=== PATIENT | male | born 1990 | race Caucasian/White ===

== ENCOUNTER 2023-03-09 17:58 | Inpatient (IN) | payer MEDICAID ==
[~2023-03-09] VITALS: Ht 185.4 cm; Wt 77.0 kg
[2023-03-09 18:35] LABS: ALANINE AMINOTRANSFERASE 17 U/L (12-78); ALBUMIN 4.4 G/DL (3.4-5.0); ALBUMIN/GLOBULIN RATIO 1.4 (1.1-1.5); ALKALINE PHOSPHATASE 92 IU/L (46-116); ANION GAP 12 (8-16); ASPARTATE AMINO TRANSFERASE 12 U/L (10-37); BILIRUBIN,TOTAL 0.7 MG/DL (0.1-1.0); BLOOD UREA NITROGEN 14 MG/DL (7-18); BUN/CREATININE RATIO 11.9 (10.0-20.0); CALCIUM 9.5 MG/DL (8.5-10.1); CHLORIDE 104 MMOL/L (99-107); CREATININE 1.18 MG/DL (0.60-1.10); GLUCOSE 129 MG/DL (70-104); LIPASE 72 U/L (73-393); POTASSIUM 3.2 MMOL/L (3.5-5.1); SODIUM 139 MMOL/L (135-145); TOTAL CARBON DIOXIDE 23.2 MMOL/L (24-32); TOTAL PROTEIN 7.5 G/DL (6.4-8.2); eGFR 72 ML/MIN
[2023-03-09 18:36] LABS: MEAN CORPUSCULAR HEMOGLOBIN 31.4 PG (27.0-31.0); WHITE BLOOD COUNT 11.2 X10'3 (4.5-11.0)
[2023-03-09 18:37] LABS: BASOPHILS % (AUTO) 0.2 % (0-1); EOSINOPHILS # (AUTO) 0.2 X10'3 (0-0.9); EOSINOPHILS % (AUTO) 1.7 % (0-6); HEMATOCRIT 43.5 % (42.0-52.0); LYMPHOCYTES # (AUTO) 1.7 X10'3 (1.1-4.8); MEAN CORPUSCULAR HGB CONC 34.4 g/dL (33.0-36.5); MEAN CORPUSCULAR VOLUME 91.4 FL (78-98); MONOCYTES # (AUTO) 1.1 X10'3 (0-0.9); MONOCYTES % (AUTO) 9.6 % (2-12); NEUTROPHILS # (AUTO) 8.2 X10'3 (1.8-7.7); NEUTROPHILS % (AUTO) 73.5 % (42-75); PLATELET COUNT 273 X10'3 (140-440); RED BLOOD COUNT 4.77 X10'6 (4.70-6.10); RED CELL DISTRIBUTION WIDTH 12.7 % (11.5-14.5)
[2023-03-09] MEDS ORDERED: normal saline 1000ML IV soln IVB ONE ×2 (18:45→21:55)
[2023-03-09] MEDS ORDERED: ondansetron/PF 4mg/2ml inj IV ONE (18:45)
[2023-03-09] MEDS: morphine 4 MG/ML inj SYRINge IV PRN ×2 (18:50→20:40)
[2023-03-09] MEDS ORDERED: NO HOME MEDS (20:42)
[2023-03-09] MEDS ORDERED: temazepam 15mg capsule PO PRN (21:00)
[2023-03-09] MEDS ORDERED: piperacillin/tazo 3.375gm/50ml 50 ML IV ONE (21:47)
--- NOTE | 2023-03-09 21:58 | NUR ---
per dr griffith, give zosyn over 30 minuties, not over the 4 hours as ordered.
[2023-03-09] MEDS ORDERED: HYDR-3965 PO (22:03)
[2023-03-09] MEDS ORDERED: METR-159 PO (22:03)
[2023-03-09] MEDS ORDERED: LEVO-65 PO (22:03)
--- NOTE | 2023-03-09 22:25 | NUR ---
US AT BEDSIDE
[2023-03-09 23:48] LABS: CLARITY,URINE CLEAR (Clear); COLOR,URINE YELLOW (Yellow); GLUCOSE, URINE NEGATIVE (Neg); KETONES,URINE 40 mg/dl (Neg); LEUKOCYTE ESTERASE ,URINE NEGATIVE (Neg); NITRITES, URINE NEGATIVE (Neg); OCCULT BLOOD,URINE NEGATIVE (Neg); PH,URINE 6.5 (4.8-8.0); PROTEIN,URINE NEGATIVE (Neg); UROBILINOGEN,URINE 0.2 E.U/dL (0.2-1.0)
[2023-03-09 23:53] LABS: UA COLLECTION TYPE STRAIGHT CATH
[2023-03-10] MEDS ORDERED: HYDROcodone/acetaminophen 5mg/325mg tablet PO PRN
[2023-03-10] MEDS ORDERED: mag hydrox/Alum hydrox/simeth 30ml oral suspension PO PRN
[2023-03-10] MEDS ORDERED: ondansetron 4mg rapidly disintigrating tab PO PRN
[2023-03-10] MEDS ORDERED: normal saline 1000ml 1,000 ML IV SCH
[2023-03-10] MEDS ORDERED: diphenhydrAMINE 25mg capsule PO PRN
[2023-03-10] MEDS ORDERED: bisacodyl 10mg suppository rectal RC PRN
[2023-03-10] MEDS ORDERED: HYDROmorphone inj. 0.5 MG/0.5 ML DISP.SYRIN IV PRN
[2023-03-10] MEDS ORDERED: acetaminophen 650mg rectal suppository RC PRN
[2023-03-10] MEDS ORDERED: acetaminophen 325mg tablet PO PRN ×2
[2023-03-10] MEDS ORDERED: HYDROcodone/acetaminophen 10/325mg tab PO PRN
[2023-03-10] MEDS ORDERED: magnesium hydroxide 30ml (MOM) UD suspension PO PRN
[2023-03-10] MEDS ORDERED: diphenhydrAMINE 50 mg/ml inj IV PRN
[2023-03-10] MEDS ORDERED: magnesium 4gm in 100ml NS 100 ML IV PRN (00:05)
[2023-03-10] MEDS ORDERED: magnesium Cl slow-release 64mg tablet PO PRN (00:05)
[2023-03-10] MEDS ORDERED: potassium Cl 40MEQ/1/2NS 520ml 520 ML IV PRN (00:05)
[2023-03-10] MEDS ORDERED: magnesium 2GM in 50ml NS 50 ML IV PRN (00:05)
[2023-03-10] MEDS ORDERED: potassium Cl 20 mEq SR tablet PO PRN ×2 (00:05)
[2023-03-10] MEDS: morphine 2 MG/ML inj. syringe IV PRN ×3 (00:22→20:57)
[2023-03-10] MEDS: ondansetron/PF 4mg/2ml inj IV PRN (00:22)
[2023-03-10] MEDS: potassium Cl 20mEq in NS 1,000 ML IV SCH ×2 (00:30→13:15)
[2023-03-10 02:25] LABS: APTT 27 SECONDS (22-32); BASOPHILS % (AUTO) 0.2 % (0-1); EOSINOPHILS % (AUTO) 0.3 % (0-6); HEMATOCRIT 40.9 % (42.0-52.0); HEMOGLOBIN 14.1 g/dl (14.0-17.9); LYMPHOCYTES # (AUTO) 0.5 X10'3 (1.1-4.8); LYMPHOCYTES % (AUTO) 3.5 % (21-51); MEAN CORPUSCULAR HGB CONC 34.4 g/dL (33.0-36.5); MEAN CORPUSCULAR VOLUME 90.2 FL (78-98); MEAN PLATELET VOLUME 9.3 FL (7.4-10.4); MONOCYTES # (AUTO) 0.1 X10'3 (0-0.9); NEUTROPHILS # (AUTO) 12.7 X10'3 (1.8-7.7); PLATELET COUNT 208 X10'3 (140-440); RED BLOOD COUNT 4.54 X10'6 (4.70-6.10); RED CELL DISTRIBUTION WIDTH 12.8 % (11.5-14.5); WHITE BLOOD COUNT 13.4 X10'3 (4.5-11.0)
[2023-03-10 02:39] LABS: ALANINE AMINOTRANSFERASE 20 U/L (12-78); ALBUMIN 3.8 G/DL (3.4-5.0); ALBUMIN/GLOBULIN RATIO 1.3 (1.1-1.5); ALKALINE PHOSPHATASE 83 IU/L (46-116); ANION GAP 13 (8-16); ASPARTATE AMINO TRANSFERASE 15 U/L (10-37); BILIRUBIN,TOTAL 0.8 MG/DL (0.1-1.0); BLOOD UREA NITROGEN 13 MG/DL (7-18); BUN/CREATININE RATIO 13.4 (10.0-20.0); CALCIUM 8.6 MG/DL (8.5-10.1); CHLORIDE 106 MMOL/L (99-107); CHOLESTEROL 111 MG/DL (0-200); CREATININE 0.97 MG/DL (0.60-1.10); GLUCOSE 140 MG/DL (70-104); HDL CHOLESTEROL 56 MG/DL (35-60); LDL CHOLESTEROL 42 MG/DL (50-100); MAGNESIUM 1.8 MG/DL (1.5-2.4); PHOSPHORUS 2.9 MG/DL (2.3-4.5); POTASSIUM 3.6 MMOL/L (3.5-5.1); SODIUM 141 MMOL/L (135-145); TOTAL CARBON DIOXIDE 22.1 MMOL/L (24-32); TOTAL PROTEIN 6.7 G/DL (6.4-8.2); TRIGLYCERIDES 32 MG/DL (20-135); eGFR > 90 ML/MIN
[2023-03-10 03:00] VITALS: BP 156/86
[2023-03-10 03:05] LABS: HEMOGLOBIN A1C 5.1 % (4.5-6.2)
[2023-03-10 04:04] LABS: HYPERSEGMENTED NEUTROPHILS 1+; LARGE PLATELETS MODERATE; TOTAL CELLS COUNTED 100
[2023-03-10 04:05] LABS: PLATELET ESTIMATE NORMAL
[2023-03-10] MEDS: piperacillin/tazo 4.5gm/100ml 100 ML IV SCH ×3 (05:47→23:29)
[2023-03-10 06:00] VITALS: BP 145/76
--- NOTE | 2023-03-10 06:31 | NUR ---
Problems reprioritized. Patient report given, questions answered & plan of care reviewed with DIANA Craft.
--- NOTE | 2023-03-10 06:46 | NUR ---
Patient in room ORTHO 4013. I have received report from DEANN ORTIZ and had the opportunity to ask questions and assume patient care.
[2023-03-10] MEDS ORDERED: docusate sod 100mg capsule PO SCH (08:00)
[2023-03-10] MEDS: K and/or MAG REPLACEMENT MC SCH ×2 (08:00→20:00)
[2023-03-10 10:00] VITALS: BP 145/88
--- NOTE | 2023-03-10 10:22 | NUR ---
Page Sent promotional table spacer PAGER ID: [phone] MESSAGE: [phone], [employer] LET ME KNOW THAT PT HAD A HR DROP TO 39 BUT DID NOT SUSTAIN. HE HAS BEEN RUNNING IN THE 40S-50S BUT PT IS SLEEPING. JOSH
--- NOTE | 2023-03-10 12:06 | NUR ---
Malnutrition Consult: Pt admit DX SANJAY, acute cholecystitis, and hemorrhagic colitis hx N/V w/ abdominal pain day of admit per EMR. 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 Pt w/ normal strength, no edema/wounds, pending scaled wt this admit w/ no prior wt hx in EMR, and appears WD/WN per MD note. Current reported wt in EMR appropriate. Pt lacks minimum malnutrition criteria at this time; will monitor for further malnutrition criteria this admit. Addendum: 03/10/23 at [address] Amended: Links added.
[2023-03-10] MEDS: metoclopramide 5 mg/ml inj IV PRN ×2 (12:50→20:47)
[2023-03-10] MEDS ORDERED: morphine 2 MG/ML inj. syringe IV PRN ×2 (13:55)
[2023-03-10] MEDS ORDERED: morphine 4 MG/ML inj SYRINge IV PRN (13:55)
[2023-03-10] MEDS ORDERED: ondansetron/PF 4mg/2ml inj IV PRN (13:55)
[2023-03-10] MEDS ORDERED: hydrALAZINE 20mg/ml inj. IV PRN (13:55)
[2023-03-10] MEDS ORDERED: fentaNYL/PF 50MCG/1 ML 2ML syringe IV PRN ×2 (13:55)
[2023-03-10] MEDS ORDERED: ringers solution, lacted 1,000 ML IV SCH (13:55)
[2023-03-10] MEDS ORDERED: labetalol 20mg/4ml (5mg/ml) syringe IV PRN (13:55)
[2023-03-10 18:00] VITALS: BP 124/73
--- NOTE | 2023-03-10 18:49 | NUR ---
Problems reprioritized. Patient report given, questions answered & plan of care reviewed with gerald monzon.
[2023-03-10 22:00] VITALS: BP 96/60
[2023-03-11] MEDS: potassium Cl 20mEq in NS 1,000 ML IV SCH ×3 (05:10→21:32)
[2023-03-11] MEDS: piperacillin/tazo 4.5gm/100ml 100 ML IV SCH ×3 (05:24→21:32)
[2023-03-11 05:34] LABS: BASOPHILS % (AUTO) 0.3 % (0-1); EOSINOPHILS # (AUTO) 0.2 X10'3 (0-0.9); EOSINOPHILS % (AUTO) 1.5 % (0-6); HEMATOCRIT 40.2 % (42.0-52.0); HEMOGLOBIN 13.9 g/dl (14.0-17.9); LYMPHOCYTES # (AUTO) 2.2 X10'3 (1.1-4.8); LYMPHOCYTES % (AUTO) 21.8 % (21-51); MEAN CORPUSCULAR HEMOGLOBIN 31.3 PG (27.0-31.0); MEAN CORPUSCULAR HGB CONC 34.6 g/dL (33.0-36.5); MEAN CORPUSCULAR VOLUME 90.7 FL (78-98); MEAN PLATELET VOLUME 9.5 FL (7.4-10.4); MONOCYTES # (AUTO) 1.1 X10'3 (0-0.9); MONOCYTES % (AUTO) 11.3 % (2-12); NEUTROPHILS # (AUTO) 6.5 X10'3 (1.8-7.7); NEUTROPHILS % (AUTO) 65.1 % (42-75); PLATELET COUNT 214 X10'3 (140-440); RED BLOOD COUNT 4.43 X10'6 (4.70-6.10); RED CELL DISTRIBUTION WIDTH 12.7 % (11.5-14.5); WHITE BLOOD COUNT 9.9 X10'3 (4.5-11.0)
[2023-03-11 05:44] LABS: ALANINE AMINOTRANSFERASE 23 U/L (12-78); ALBUMIN 3.3 G/DL (3.4-5.0); ALBUMIN/GLOBULIN RATIO 1.2 (1.1-1.5); ALKALINE PHOSPHATASE 69 IU/L (46-116); ANION GAP 9 (8-16); ASPARTATE AMINO TRANSFERASE 15 U/L (10-37); BILIRUBIN,TOTAL 0.6 MG/DL (0.1-1.0); BLOOD UREA NITROGEN 10 MG/DL (7-18); BUN/CREATININE RATIO 9.7 (10.0-20.0); CALCIUM 8.5 MG/DL (8.5-10.1); CHLORIDE 107 MMOL/L (99-107); CREATININE 1.03 MG/DL (0.60-1.10); GLUCOSE 97 MG/DL (70-104); POTASSIUM 3.7 MMOL/L (3.5-5.1); SODIUM 140 MMOL/L (135-145); TOTAL CARBON DIOXIDE 24.4 MMOL/L (24-32); TOTAL PROTEIN 6.1 G/DL (6.4-8.2); eGFR 85 ML/MIN
[2023-03-11 06:00] VITALS: BP 117/77
--- NOTE | 2023-03-11 06:57 | NUR ---
Patient in room ORTHO 4013. I have received report from gerald monzon and had the opportunity to ask questions and assume patient care.
[2023-03-11] MEDS: K and/or MAG REPLACEMENT MC SCH ×2 (08:00→20:00)
[2023-03-11] MEDS: metoclopramide 5 mg/ml inj IV PRN (08:39)
[2023-03-11] MEDS: morphine 2 MG/ML inj. syringe IV PRN (08:40)
--- NOTE | 2023-03-11 09:07 | NUR ---
Page SenT PAGER ID: [phone] MESSAGE: [phone] ROCHELLE, PT IS HAVING CHEST PAIN SAYS ITS 05/12, I GAVE MORPHINE AND HIS VITALS WERE 95/69 HR 71 98% RA 22 RR. PLEASE CALL ME YANIQUE, POSSIBLE ANXIETY JOSH [id number]
[2023-03-11 10:00] VITALS: BP 146/72
[2023-03-11] MEDS ORDERED: LORazepam 2 mg/ml vial IV PRN (10:55)
[2023-03-11] MEDS: HYDROmorphone 1 mg/ml syringe IV PRN ×3 (11:07→21:34)
[2023-03-11] MEDS: ondansetron/PF 4mg/2ml inj IV PRN ×2 (15:35→21:34)
[2023-03-11 18:00] VITALS: BP 97/67
[2023-03-11 22:00] VITALS: BP 124/72
--- NOTE | 2023-03-12 00:49 | NUR ---
Problems reprioritized. Patient report given, questions answered & plan of care reviewed with CHERYL ORTIZ.
--- NOTE | 2023-03-12 00:51 | NUR ---
Problems reprioritized. Patient report given, questions answered & plan of care reviewed with CHERYL ORTIZ.
[2023-03-12] MEDS: potassium Cl 20mEq in NS 1,000 ML IV SCH (02:20)
[2023-03-12 06:22] LABS: BASOPHILS % (AUTO) 0.3 % (0-1); EOSINOPHILS # (AUTO) 0.1 X10'3 (0-0.9); EOSINOPHILS % (AUTO) 1.6 % (0-6); HEMATOCRIT 38.2 % (42.0-52.0); HEMOGLOBIN 13.3 g/dl (14.0-17.9); LYMPHOCYTES # (AUTO) 1.9 X10'3 (1.1-4.8); LYMPHOCYTES % (AUTO) 23.6 % (21-51); MEAN CORPUSCULAR HEMOGLOBIN 31.5 PG (27.0-31.0); MEAN CORPUSCULAR HGB CONC 34.7 g/dL (33.0-36.5); MEAN CORPUSCULAR VOLUME 90.8 FL (78-98); MEAN PLATELET VOLUME 8.6 FL (7.4-10.4); MONOCYTES # (AUTO) 0.9 X10'3 (0-0.9); MONOCYTES % (AUTO) 10.6 % (2-12); NEUTROPHILS # (AUTO) 5.3 X10'3 (1.8-7.7); NEUTROPHILS % (AUTO) 63.9 % (42-75); PLATELET COUNT 209 X10'3 (140-440); RED BLOOD COUNT 4.21 X10'6 (4.70-6.10); RED CELL DISTRIBUTION WIDTH 12.7 % (11.5-14.5); WHITE BLOOD COUNT 8.2 X10'3 (4.5-11.0)
[2023-03-12 06:48] LABS: ALANINE AMINOTRANSFERASE 20 U/L (12-78); ALBUMIN 3.2 G/DL (3.4-5.0); ALBUMIN/GLOBULIN RATIO 1.1 (1.1-1.5); ALKALINE PHOSPHATASE 69 IU/L (46-116); ANION GAP 8 (8-16); ASPARTATE AMINO TRANSFERASE 15 U/L (10-37); BILIRUBIN,TOTAL 0.5 MG/DL (0.1-1.0); BLOOD UREA NITROGEN 13 MG/DL (7-18); BUN/CREATININE RATIO 11.9 (10.0-20.0); CALCIUM 8.5 MG/DL (8.5-10.1); CHLORIDE 106 MMOL/L (99-107); CREATININE 1.09 MG/DL (0.60-1.10); GLUCOSE 103 MG/DL (70-104); POTASSIUM 3.5 MMOL/L (3.5-5.1); SODIUM 140 MMOL/L (135-145); TOTAL CARBON DIOXIDE 25.6 MMOL/L (24-32); eGFR 79 ML/MIN
[2023-03-12 07:24] VITALS: BP 122/68
[2023-03-12] MEDS: K and/or MAG REPLACEMENT MC SCH (08:00)
[2023-03-12 08:51] VITALS: BP 122/68
[2023-03-12] MEDS: piperacillin/tazo 4.5gm/100ml 100 ML IV SCH (10:22)
[2023-03-12 11:56] VITALS: BP 114/72
[2023-03-12] MEDS ORDERED: CIPR-202 PO (12:22)
[2023-03-12] MEDS ORDERED: METR-159 PO (12:22)
[2023-03-12] MEDS ORDERED: ACET-1008 PO (12:23)
--- NOTE | 2023-03-12 13:31 | NUR ---
PAGER ID: [phone] MESSAGE: Are you printing hard copies for new prescriptions for [facility] [id number]? Kirstin [phone]
--- NOTE | 2023-03-12 14:45 | NUR ---
Patient walked to Lobby with family assisted by RN. All belongings sent with patient. IV taken out, no issues. Patient not complaining of pain. Talking and walking around. No distress. 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 Patient has his discharge paper work in hand. He is aware to make his own PCP appointment and follow up with labs. He will call Dr. Chester if recurring event. He is aware to stay on liquids for 3 days and advance to regular diet gradually and not over do it. Patient discharged.
== END 2023-03-12 14:44 | disposition home or self-care (01) ==
LOC: ER 17:59 → ED HOLD 03-10 00:04 → ORTHO 4S 03-10 02:09
PROVIDERS: ADMIT Family Medicine; ATTEND Internal Medicine
DX: K80.00 Calculus of gallbladder with acute cholecystitis without obstruction (principal); N17.9 Acute kidney failure, unspecified; K52.9 Noninfective gastroenteritis and colitis, unspecified; K31.9 Disease of stomach and duodenum, unspecified; E87.6 Hypokalemia; R33.9 Retention of urine, unspecified; Z79.891 Long term (current) use of opiate analgesic; Z79.899 Other long term (current) drug therapy
CPT/HCPCS: 36415; 74176; 76700; 80053; 80061; 81003; 83036; 83605; 83690; 83735; 83880; 84100; 84145; 84484; 85007; 85025; 85610; 85730; 86885; 86900; 86901; 87040; 87081; 93005; 99285; A4314; A6258; C1758; G0378; J1170; J2270; J2405; J2543; J2765; J3480; J7030

== ENCOUNTER 2025-06-21 16:04 | Emergency (ER) | payer MEDICAID ==
[~2025-06-21] VITALS: Ht 188 cm; Wt 85.3 kg
[2025-06-21 16:19] VITALS: BP 131/85; PULSE 81; RESP 18; TEMP 97.3; O2SAT 98
[2025-06-21] MEDS: LIDOcaine 1% W/epiNEPHrine 1:100,000 20ml vial SQ STA (16:49)
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
[2025-06-21] MEDS: TETanus/Pertussis (Acell)/Diphther VAC/PF (Tdap-Adult) 0.5ml syringe IMVAC ONE (18:37)
== END 2025-06-21 18:40 | disposition home or self-care (01) ==
LOC: ER 16:05
DX: S51.812A Laceration without foreign body of left forearm, initial encounter (principal); X58.XXXA Exposure to other specified factors, initial encounter; Y93.55 Activity, bike riding; Y92.89 Other specified places as the place of occurrence of the external cause; Y99.8 Other external cause status
CPT/HCPCS: 12001; 90471; 90715; 99283; J3490; J7030